=== PATIENT | female | born 1930 | race Caucasian/White ===

== ENCOUNTER 2017-04-14 14:43 | Emergency (ER) | payer MEDICARE, OTHER ==
[~2017-04-14] VITALS: Ht 162.6 cm; Wt 70.3 kg
--- NOTE | ~2017-04-14 | MR18 ---
[facility] A Service of [facility] RADIOLOGY TEXT RESULTS PATIENT: TRENTON ESTRADA LOCATION: [facility] : 34 UNIT #: [id number] AGE: [address]: Arnulfo Hylton MD SEX: F ORDER DR: [id number] [facility] [address] [place], [place] [address] [id number] E MR#: [id number] #: [id number] NAME: TRENTON ESTRADA : 1930 SEX: F STUDY DATE/TIME: 04/14/2017 18:03 UNIT: [facility] ROOM: STUDY DESCRIPTION: MR Brain Wo Contrast Attending Physician: Arnulfo Hylton M.D. Ordering Physician: Arnulfo Hylton M.D. Primary Care Physician: [facility] REPORT This report is preliminary unless electronic signature is present. EXAM Brain MRI without. HISTORY Neurologic deficit. Woke up this morning with left face, arm, leg numbness. No known injury. History of tunnel vision and migraines for 30 years. History of hypertension. No history of cancer. FINDINGS MRI of the brain was performed without contrast using routine 1.5T imaging technique. There is a previous study from 07/04/14. There is no evidence for a recent ischemic insult on the diffusion series. There is generalized atrophy. There is no MRI evidence for intracranial hemorrhage. There is no extraaxial fluid collection or intracranial mass effect. There is mild periventricular white matter signal abnormality, which is nonspecific, but probably due to small vessel disease. Chronic small lacunes and/or prominent perivascular spaces in the bilateral basal ganglia. On comparison to the study from 2013, findings are probably not significantly changed. IMPRESSION 1. No evidence for recent ischemic insult on the diffusion series. 2. Age appropriate atrophy. Mild probable sequelae of small vessel disease. Dictated by... Laura Horn M.D. THIS IS AN ELECTRONICALLY VERIFIED REPORT Laura Horn M.D. at 04/15/2017 11:15 AM SAC/pc [facility] A Service of [facility] RADIOLOGY TEXT RESULTS PATIENT: TRENTON ESTRADA LOCATION: [facility] : 32 UNIT #: [id number] AGE: [address]: Arnulfo Hylton MD SEX: F ORDER DR: TD: 04/15/2017 07:53 JOB #: [id number] [facility] REPORT Page 1 of 1 COPY
--- NOTE | ~2017-04-14 | EKG ---
PATIENT: TRENTON ESTRADA UNIT #: [id number] Ventricular Rate: 57 BPM Atrial Rate: 57 BPM P-R Interval: 160 ms QRS Duration: 76 ms Q-T Interval: 452 ms QTC Calculation(Bezet): 439 ms P [place]: 56 degrees Calculated R [place]: 47 degrees Calculated T [place]: 75 degrees Diagnosis Line: Sinus bradycardia Diagnosis Line: Nonspecific ST abnormality Diagnosis Line: Abnormal ECG Diagnosis Line: When compared with ECG of 02-SEP-2014 10:49, Diagnosis Line: No significant change was found Diagnosis Line: Confirmed by KASSY HEREDIA MD ([id number]) on Diagnosis Line: 04/15/2017 10:53:22 AM INTERPRETING MD: YAN RANDALL
[~2017-04-14 14:43] MED LIST: ACETAMINOPHEN PO; ALPRAZOLAM PO; ASPIRIN PO; ASPIRIN81 M2 PO; CARAFATE1 G PO; CARDIZEM PO; CERTAGEN PO; COLACE PO; DILTIAZEM 24HR240 M1 PO; DIOVAN HCT 160-1 TAB PO; DIOVAN320 MG PO; DOC-Q-LACE100 MG PO; DONNATAL TABL16.2 MG PO; FAMOTIDINE20 MG PO; FISH OIL 1,0001 CAP PO; GAS-X125 MG PO; HYDRALAZINE HCL25 MG PO; HYDRALAZINE HCL50 MG PO; HYDROCHLOROTHIA25 MG PO; KCL PO; KEPPRA500 M1 PO; LIPITOR PO; LIPITOR20 MG PO; MOBIC PO; NEXIUM PO; NIACIN100 MG PO; NIACIN500 M2 PO; NORCO 5/325 TAB1 TAB PO; NORVASC10 MG PO; PANTOPRAZOLE SO40 MG PO; PHENERGAN PO; PHENOBARBITAL15 MG PO; POTASSIUM CHLO10 ME1 PO; PREVACID PO; PROBIOTIC1 EAC2 PO; PROTONIX PO; RED YEAST RICE600 MG PO; TOPROL XL PO; VITAMIN B 12 DAILY PO; VITAMIN D2000 UNIT PO; XANAX1 MG PO; [UNRECOGNIZED DRUG - OTHER]; [UNRECOGNIZED DRUG - REMARK] PO
[2017-04-14] MEDS ORDERED: PATIENT'S PHARMACY (15:37)
[2017-04-14] MEDS ORDERED: COZAAR PO (15:38)
[2017-04-14] MEDS ORDERED: SINGULAIR PO (15:38)
[2017-04-14] MEDS ORDERED: MOBIC15 MG PO (15:38)
[2017-04-14] MEDS ORDERED: IRON (15:39)
[2017-04-14] MEDS ORDERED: VITAMIN D250000 UNIT PO (15:44)
[2017-04-14] MEDS ORDERED: HYDROCHLOROTHIA25 MG PO (15:44)
[2017-04-14] MEDS ORDERED: MORGIDOX50 MG PO (15:44)
[2017-04-14] MEDS ORDERED: ATORVASTATIN CA10 MG PO (15:45)
[2017-04-14] MEDS ORDERED: HYDRALAZINE HCL50 MG PO (15:45)
[2017-04-14] MEDS ORDERED: ESOMEPRAZOLE MA40 MG PO (15:46)
[2017-04-14] MEDS ORDERED: METOPROLOL SUCC25 MG PO (15:46)
[2017-04-14] MEDS ORDERED: XANAX1 MG PO (15:47)
[2017-04-14 15:52] LABS: BASOPHIL# 0.1 X10e3 (0-0.3); BASOPHIL% 0.8 % (0-2.5); EOSINOPHIL# 0.1 X10e3 (0-0.7); EOSINOPHIL% 0.9 % (0.0-7.0); HEMATOCRIT 41.1 % (35.0-45.0); HEMOGLOBIN 13.7 gm/dL (12.0-16.0); LYMPHOCYTE# 2.3 X10e3 (1.0-3.5); LYMPHOCYTE% 31.5 % (17.0-45.0); MEAN CELL VOLUME 83.6 FL (83-96); MEAN CORPUSCULAR HEMOGLOBIN 27.9 PG (28-34); MEAN CORPUSCULAR HGB CONC 33.3 g/dL (30-36); MEAN PLATELET VOLUME 8.7 FL (6.5-11.5); MONOCYTE# 0.9 X10e3 (0-1.0); MONOCYTE% 12.6 % (3.0-12.0); NEUTROPHIL% 54.2 % (40-75); PLATELET COUNT 293 X10e3 (140-420); RED BLOOD COUNT 4.91 X10e (3.90-5.30); RED CELL DISTRIBUTION WIDTH 17.5 % (11.0-15.5); WHITE BLOOD COUNT 7.4 X10e3 (4.0-10.5)
[2017-04-14 15:54] LABS: DIFF IND NO
[2017-04-14 16:18] LABS: URINE SOURCE CLEAN CATCH
[2017-04-14 16:25] LABS: BUN/CREATININE RATIO 13.75; CALCIUM SERUM 9.4 mg/dL (8.4-10.2); CREATININE SERUM 0.8 mg/dL (0.6-1.4); GLOM FILT RATE Estimated 67.8 mL/min (>60); POTASSIUM 3.3 mmol/L (3.5-5.1)
[2017-04-14 16:26] LABS: URINE APPEARANCE CLEAR; URINE BILIRUBIN NEG (NEG); URINE BLOOD NEG (NEG); URINE COLOR YELLOW; URINE GLUCOSE NEG (NEG); URINE KETONE NEG (NEG); URINE LEUKOCYTE ESTERASE NEG (NEG); URINE NITRATE NEG (NEG); URINE PROTEIN NEG (NEG); URINE SPECIFIC GRAVITY 1.007 (1.003-1.035); URINE UROBILINOGEN 0.2 MG/DL (NEG)
== END 2017-04-14 19:35 | disposition home or self-care (01) ==
LOC: CED 14:43
PROVIDERS: Emergency Medicine
DX: R20.2 Paresthesia of skin (principal); E78.5 Hyperlipidemia, unspecified; I10 Essential (primary) hypertension; Z88.1 Allergy status to other antibiotic agents; Z88.0 Allergy status to penicillin; Z88.2 Allergy status to sulfonamides; Z79.899 Other long term (current) drug therapy
CPT/HCPCS: 36415; 70551; 80048; 81003; 85025; 93005; 99284